=== PATIENT | female | born 2000 | race Caucasian/White ===

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

== ENCOUNTER 2023-01-11 00:59 | Emergency (ER) | payer OTHER, SELFPAY ==
[2023-01-11 01:01] VITALS: BP 146/93; PULSE 91; RESP 16; TEMP 36.6; O2SAT 99; BMI 23.8
[2023-01-11 01:26] LABS: Basophils # 0.1 K/mm3 (0-0.2); Basophils % 0.8 % (0.1-2.0); Eosinophils # 0.8 K/mm3 (0.0-0.4); Eosinophils % 7.3 % (0.1-12.0); Hematocrit 41.6 % (37.0-47.0); Hemoglobin 13.8 g/dL (12.2-16.2); Lymphocytes # 2.9 K/mm3 (0.7-4.5); Mean Corpuscular HGB Conc 33.1 g/dL (31.8-35.4); Mean Corpuscular Volume 93.6 fl (81-99); Mean Platelet Volume 7.9 fl (7.4-10.4); Monocytes # 0.6 K/mm3 (0.1-1.0); Monocytes % 5.9 % (1.7-9.3); Neutrophils % 58.1 % (37.0-80.0); Platelet Count 349 K/mm3 (142-424); Red Blood Count 4.44 M/mm3 (4.20-5.40); Red Cell Distribution Width 13.3 % (11.5-17.5); White Blood Count 10.3 K/mm3 (4.8-10.8)
[2023-01-11 01:30] LABS: Chloride 98 mmol/L (98-107)
[2023-01-11 01:31] LABS: Sodium 139 mmol/L (136-145)
[2023-01-11 01:33] LABS: Alanine Aminotransferase 19 U/L (12-78); Alkaline Phosphatase 91 U/L (38-126); Aspartate Amino Transferase 36 U/L (14-36); Bilirubin,Total 0.2 mg/dl (0.2-1.3); Blood Urea Nitrogen 26 mg/dl (7-17); Creatinine Clearance Estimated 69 mL/min (50-200); Estimated Glomerular Filt Rate 57 ml/min (>60); GFR (African American) 69 ML/MIN (>60)
[2023-01-11 01:34] LABS: Albumin Level 4.3 g/dl (3.5-5.0); Albumin/Globulin Ratio 1.7 (1.1-1.8); Calcium 8.7 mg/dl (8.4-10.2); Carbon Dioxide 28 mmol/L (22.0-30.0); Globulin 2.5 g/dL (1.3-3.2); Glucose 78 mg/dl (74-100); Total Protein,Serum 6.8 g/dl (6.3-8.2)
--- NOTE | 2023-01-11 02:28 | HMH.EDGENADL ---
Discharge Plan Disposition Patient Disposition: Home, Self-Care Condition: Good Prescriptions Prescriptions: New sulfamethoxazole-trimethoprim [Bactrim] 400-80 mg tablet 1 tab PO BID 7 Days Qty: 14 0RF amoxicillin-pot clavulanate [Augmentin] 500-125 mg tablet 1 tab PO Q12H Qty: 20 0RF ondansetron 4 mg tablet,disintegrating 4 mg PO Q8H PRN (Reason: nausea and vomiting) 5 Days Qty: 30 0RF No Action phenazopyridine 100 mg tablet 100 mg PO DAILY Label Comments: TAKE 1 TABLET BY MOUTH THREE TIMES DAILY FOR 3 DAYS nitrofurantoin monohyd/m-cryst 100 mg capsule 100 mg PO BID Label Comments: TAKE 1 CAPSULE BY MOUTH EVERY 12 HOURS FOR 7 DAYS WITH A MEAL/FOOD Referrals Follow up/Referrals: Day Duong APRN [Primary Care Provider] - See instructions Clinical Impressions Clinical Impression: Conjunctivitis, Preseptal cellulitis of right eye Instructions Patient Instructions: DI for Diarrhea and Traveler's Diarrhea -- Adult, DI for Diarrhea and Traveler's Diarrhea -- Child, DI for Nausea -- Adult, DI for Nausea -- Child Discharge ED Provider: Pascual Davidson General Adult HPI General Chief complaint: Nausea/Vomiting/Diarrhea Stated complaint: N/V,Right side face swollen,drainage from eyes Time Seen by Provider: 01/11/23 01:05 Mode of Arrival: Ambulatory Source of Information: Patient Limitations: No Limitations Description of Symptoms (Recalled from ER Triage Doc. by RN): Pt states that she has had nausea and vomiting for the prior hour and has had eye swelling since this morning with drainage. States that she also has had a UTI that was diagnosed 3 days ago History of Present Illness HPI narrative: This is a very pleasant 23-year-old lady with no significant past medical history who was recently diagnosed with a UTI and is being treated with Macrobid who presents with right discharge. This started this morning. She denies any vision changes. No fevers. On the way to the ER she had 1 episode of nausea and vomiting. Does not have a headache. Denies any numbness weakness or paresthesias. Related Data Home Medications Medication Instructions Recorded Confirmed nitrofurantoin 100 mg PO BID urinary tract 01/11/23 01/11/23 monohydrate/macrocrystals 100 mg infection capsule phenazopyridine 100 mg tablet 100 mg PO DAILY uti 01/11/23 01/11/23 Previous Rx's Medication Instructions Recorded amoxicillin 500 mg-potassium 1 tab PO Q12H #20 tabs 01/11/23 clavulanate 125 mg tablet (Augmentin) ondansetron 4 mg disintegrating 4 mg PO Q8H PRN nausea and 01/11/23 tablet vomiting 5 days #30 tabs sulfamethoxazole 400 1 tab PO BID 7 days #14 tabs 01/11/23 mg-trimethoprim 80 mg tablet (Bactrim) Allergies Allergy/AdvReac Type Severity Reaction Status Date / Time No Known Allergies Allergy Verified 06/10/20 13:40 [facility] Disclaimer: The information contained in this section may have been updated after the patient was seen, as this information can be updated by other users. Social History Smoking Status: Current every day smoker alcohol intake: never current occupational status: other Travel in the last 8 weeks: None housing: house ROS Obtained: Yes All systems reviewed & no additional complaints except as documented Physical Exam General General appearance: alert and in no apparent distress Head Head exam: atraumatic and normocephalic Eye Eye exam: Present other (Left eye is normal. Right eye with slight conjunctival injection with limbic sparing. There is preseptal swelling around the right eye. No pain with extraocular movements. Pupil is equal round and reactive to light. No limitation to extraocular movements.) ENT ENT exam: Present normal exam Neck Neck exam: Present normal inspection Chest Chest inspection: Present normal inspection Respiratory Respiratory exam: Present normal lung sounds bilaterally Cardiovascular Card
[2023-01-11 02:54] LABS: Microscopic, Urine URINE MICROSCOPIC (MICROSCOPIC)
[2023-01-11 02:55] LABS: Appearance,Urine CLEAR (Clear); Bilirubin,Urine Negative (Negative); Blood, Urine TRACE-I (Negative); Color,Urine YELLOW (Yellow); Glucose,Urine (UA) Negative (Negative); Ketones,Urine Negative (Negative); Leukocyte Esterase,Urine Negative (Negative); Nitrate,Urine Negative (Negative); Protein,Urine Negative (Negative); Urobilinogen,Urine 0.2 EU/dl (0.2)
[2023-01-11 03:08] LABS: Squamous Epithelial Cell,Urine Occasional #/hpf (0-5)
[2023-01-11 03:17] VITALS: BP 140/90; PULSE 80; RESP 18; TEMP 36.6; O2SAT 99
== END 2023-01-11 03:19 | disposition home or self-care (01) ==
PROVIDERS: Emergency Provider Emergency Medicine; PCP Nurse Practitioner Family
DX: H05.011 Cellulitis of right orbit (principal); R11.2 Nausea with vomiting, unspecified; R19.7 Diarrhea, unspecified; F17.200 Nicotine dependence, unspecified, uncomplicated
CPT/HCPCS: 80053; 81001; 85025; 96361; 96374; 99284; J2405